=== PATIENT | female | born 1945 | race Two or more races ===

== ENCOUNTER 2020-03-20 12:18 | Outpatient (REF) | payer MEDICARE, SELFPAY ==
--- NOTE | 2020-03-20 12:27 | XR_ITS ---
EXAMINATION: XR FOOT, LEFT CLINICAL INFORMATION: Cellulitis of left lower leg COMPARISON: None TECHNIQUE: AP, lateral, and oblique views of the left foot. FINDINGS: No fracture or dislocation. Alignment is anatomic. Joint spaces are maintained. Prominent Achilles heel spur. Small plantar heel spur. No osseous erosions. The soft tissues appear unremarkable. XR/XR foot LT min 3V IMPRESSION: No acute osseous abnormality. Heel spurs. No osseous erosions.
== END 2020-03-20 12:19 | disposition home or self-care (01) ==
LOC: HO.XRAY 12:18
PROVIDERS: PCP Internal Medicine Geriatric Medicine; Visit Provider General Practice
DX: L03.116 Cellulitis of left lower limb (principal)
CPT/HCPCS: 73630

== ENCOUNTER 2021-09-24 12:42 | Outpatient (REF) | payer OTHER, SELFPAY ==
--- NOTE | ~2021-09-24 | XR_ITS ---
EXAMINATION: XR CHEST CLINICAL INFORMATION: Cough COMPARISON: Portable AP chest radiograph 11/19/2016 TECHNIQUE: 2 views of the chest were obtained. FINDINGS: Patient is rotated to the right. The lungs are clear. There is no lobar or segmental airspace consolidation or effusion. No focal groundglass opacity. The costophrenic sulci are clear. The heart is within normal size. Vascularity normal. No acute bony abnormality. XR/XR chest 2V IMPRESSION: Unremarkable examination.
== END 2021-09-24 12:43 | disposition home or self-care (01) ==
LOC: HO.XRAY 12:42
PROVIDERS: Absent Provider General Practice; PCP General Practice; Visit Provider Emergency Medicine
DX: R05.9 Cough, unspecified (principal)
CPT/HCPCS: 71046

== ENCOUNTER 2022-12-15 13:53 | Outpatient (REF) | payer OTHER, SELFPAY ==
[2022-12-15 16:18] LABS: Appearance Urine Cloudy; Color Urine Yellow; Glucose Urine UA Negative (Negative); Leukocyte Esterase Urine Negative (Negative); Nitrite Urine Negative (Negative); UMIC TRIGGER UACC YES; Urine Blood Trace (Negative); Urine Ketones Negative (Negative); Urine Protein 100 (2+) mg/dL (Neg-Trace)
[2022-12-15 16:31] LABS: Bacteria Urine None Seen (None Seen); Squamous Epithelial Cell Urine 0-2 /HPF (0-2); WBC Urine 0-5 /HPF (0-5)
== END 2022-12-15 13:54 | disposition home or self-care (01) ==
LOC: HO.HHCLNP 13:53
PROVIDERS: Visit Provider Registered Nurse
DX: R41.0 Disorientation, unspecified (principal)
CPT/HCPCS: 81001

== ENCOUNTER 2022-12-25 10:38 | Outpatient (REF) | payer OTHER, SELFPAY ==
[2022-12-25 13:03] LABS: Anion Gap 9 (12-20); Blood Urea Nitrogen 16 mg/dL (9-16); Calcium 9.4 mg/dL (8.4-10.2); Carbon Dioxide 28 mmol/L (22-29); Chloride 110 mmol/L (96-108); Estimated Glomerular Filt Rate > 60; Glucose Random 89 mg/dL (60-115); Potassium 4.1 mmol/L (3.3-5.1); Sodium 143 mmol/L (135-145)
== END 2022-12-25 10:39 | disposition home or self-care (01) ==
LOC: HO.HHCL 10:38
PROVIDERS: Visit Provider Registered Nurse
DX: R80.9 Proteinuria, unspecified (principal)
CPT/HCPCS: 36415; 80048

== ENCOUNTER 2023-01-09 13:29 | Outpatient (REF) | payer OTHER, SELFPAY ==
[2023-01-09 16:11] LABS: Appearance Urine Clear; Color Urine Yellow; Glucose Urine UA Negative (Negative); Leukocyte Esterase Urine Negative (Negative); Nitrite Urine Negative (Negative); Specific Gravity - Urine 1.015 (1.005-1.025); UMIC TRIGGER UACC YES; Urine Blood Trace (Negative); Urine Ketones Negative (Negative); Urine Protein 100 (2+) mg/dL (Neg-Trace)
[2023-01-09 16:16] LABS: Bacteria Urine None Seen (None Seen); Squamous Epithelial Cell Urine 0-2 /HPF (0-2); WBC Urine 0-5 /HPF (0-5)
== END 2023-01-09 13:30 | disposition home or self-care (01) ==
LOC: HO.HHCL 13:29
PROVIDERS: Visit Provider Registered Nurse
DX: R31.21 Asymptomatic microscopic hematuria (principal)
CPT/HCPCS: 81001

== ENCOUNTER 2023-03-12 13:58 | Outpatient (REF) | payer OTHER, SELFPAY ==
[2023-03-12 17:05] LABS: Urine Cytology See Pathology rpt
== END 2023-03-12 13:59 | disposition home or self-care (01) ==
LOC: HO.LAB 13:58
PROVIDERS: PCP General Practice; Visit Provider Urology
DX: R31.9 Hematuria, unspecified (principal); Z87.440 Personal history of urinary (tract) infections
CPT/HCPCS: 81003; 88112; 99202

== ENCOUNTER 2023-03-12 13:58 | Outpatient (AMB) | payer OTHER, SELFPAY ==
--- NOTE | 2023-03-12 14:05 | A.OFFVIS_ITS ---
Intake Intake Visit Reasons: hematuria, unspecified Intake Note: NEW Patient presents today to established treatment for HEMATURIA: Meds- None Allergies to Antibiotic- No Known Allergies Blood Thinner- Aspirin Patient Symptoms: None Activated Sludge Attendant Required: No Accompanied by: Grand Child Allergies No Known Allergies Allergy (Unverified 01/19/20 17:13) HPI HPI Comments History of Present Illness Details Kenyatta is a 78-year-old male who presents today to the office to establish as a new patient for an evaluation of hematuria. 03/12/2023-- Kenyatta is here for evaluation for hematuria. Past Medical history Recurrent UTI's, Diabetes, Htn, The patient complains of daytime urinary frequency every 2-3 hours, I have discussed reasons for blood in the urine may include but are not limited to kidney stones, cancer in the urinary tract, kidney stone disease or inflammatory conditions of the urinary tract. I have discussed workup to include evaluation of the upper tracts and consideration for cystoscopy evaluation. Plan: urine for cytology. renal US FU office cysto PFSH Medical History Hx of backache History of depressive symptoms Hx of gastroesophageal reflux (GERD) Hx of urinary tract infection Hx of delirium History of dementia Hx of diabetes mellitus Hx of essential hypertension Surgical History No pertinent past surgical history Family History Father No problems noted. Mother No problems noted. Social History Alcohol intake: current Alcohol intake frequency: does not drink Patient Tobacco Use Status: Never used Tobacco Review of Systems Const All systems reviewed & are unremarkable except as noted in HPI and below Reports no additional complaints Eyes Reports no additional complaints ENT Reports no additional complaints Card Denies dyspnea Resp Denies cough and Denies dyspnea GI Reports no additional complaints Reports no additional complaints Musc Reports no additional complaints Skin/Breast Denies rash and Denies unusual bruising Neuro Reports no additional complaints Psych Reports no additional complaints Endo Reports no additional complaints Jovi/Lymph Reports no additional complaints Aller/Immun Reports no additional complaints Physical Exam Const General: cooperative, healthy appearing and no acute distress Orientation/consciousness: patient oriented x3 HEENT Head: Yes normal to inspection, Yes normocephalic and Yes atraumatic Eyes Conjunctivae: conjunctivae normal Neck Neck: Yes normal visual inspection and Yes trachea midline Chest Chest palpation & inspection: normal inspection of the chest Resp Effort & Inspection: normal respiratory effort Cardio Rate: regular rate GI Inspection: Yes normal to inspection Palpation (GI): Soft to palpation Skin General skin exam: no rashes or lesions noted Neuro General: patient oriented x3 Extrem General: No edema Psych Appearance: grossly normal Results AMB Urinalysis, Automated UA Leukoctes 0 Tesha/uL Last Edit by JOSE MANUEL Zamora on 03/12/23 14:37 UA Nitrite Negative Last Edit by JOSE MANUEL Zamora on 03/12/23 14:37 UA Urobilinogen 0.2 mg/dL Last Edit by JOSE MANUEL Zamora on 03/12/23 14:3 7 UA Protein 30 mg/dL Last Edit by JOSE MANUEL Zamora on 03/12/23 14:37 1+ Magdiel Cerda 03/12/23 14:37 UA pH 6.0 Last Edit by JOSE MANUEL Zamora on 03/12/23 14:37 UA Blood 25 [place]reed[place]/uL Last Edit by JOSE MANUEL Zamora on 03/12/23 14:37 1+ Magdiel Cerda 03/12/23 14:37 UA Specific [place] 1.015 Last Edit by JOSE MANUEL Zamora on 03/12/23 14: 37 UA Ketone Negative Last Edit by JOSE MANUEL Zamora on 03/12/23 14:37 UA Bilirubin 0 mg/dL Last Edit by JOSE MANUEL Zamora on 03/12/23 14:37 UA Glucose 0 mg/dL Last Edit by JOSE MANUEL Zamora on 03/12/23 14:37 Results Reviewed Results Reviewed: Laboratory Last Values Urine pH (Auto) 6.0 03/12/23 14:09 Specific [place] (Auto) 1.015 03/12/23 14:09 Urine Protein (Auto) 30 mg/dL 03/12/23 14:09 Glucose (UA)(Auto) 0 mg/dL 03/12/23 14:09 Urine Ketones (Auto) Negative 03/12/23 14:09 Urine Blood (Auto) 25 [place]reed[place]/uL 03/12/23 14:09 Urine Nitrite (Auto) Negative 03/12/23 14:09 Urine Bilirubin (Auto) 0 mg/dL 03/12/23 14:09 Urine Urobilinogen (Auto) 0.2 mg/dL 03/12/23 14:09 Leukocyte Esterase (Auto) 0 Tesha/uL 03/12/23 14:09 Assessment & Plan Assessment & Plan (1) Recurrent UTI: Code(s): N39.0 - Urinary tract infection, site not specified (2) Hematuria: Code(s): R31.9 - Hematuria, unspecified Plan urine for cytology. renal US FU office cysto Orders: Orders Urine Cytology 03/12/23 Z87.448 - Personal history of other diseases of urinary system AMB Urinalysis Automated 03/12/23 Z13.9 - Encounter for screening, unspecified Patient Instructions: The patient had an opportunity to ask questions regarding treatment plan. All questions were answered. Imaging, Laboratory studies and physical exam results were discussed and reviewed in detail. No major barriers to understanding were identified. The patient expressed understanding and agreement with the above treatment plan. The patient is aware they should contact our office by phone for worsening of their current condition or the appearance of new symptoms. Compliance is encouraged with any medications and followup testing that is ordered. It is a privilege to be allowed the opportunity to participate in the urologic care of your patient. If you have any questions or concerns regarding treatment for the above conditions please do not hesitate to contact me. The office telephone contact is [phone]. This note is constructed in part using voice recognition software. While every effort has been made to ensure accuracy distribution specialist errors may have been included. Yours sincerely, Jamie Eduardo MD Coding Level of Care Code New Pt Level 4 (76656) Diagnoses Recurrent UTI N39.0 Hematuria R31.9
== END 2023-03-12 15:00 | disposition home or self-care (01) ==
PROVIDERS: PCP General Practice; Visit Provider Urology
DX: N39.0 Urinary tract infection, site not specified (principal); R31.9 Hematuria, unspecified
CPT/HCPCS: 99204

== ENCOUNTER 2023-05-22 12:23 | Outpatient (REF) | payer OTHER, SELFPAY ==
--- NOTE | ~2023-05-22 | US_ITS ---
EXAMINATION: US RETROPERITONEAL LIMITED (RENAL ONLY) CLINICAL INFORMATION: Hematuria, unspecified. COMPARISON: Ultrasound abdomen limited 04/04/2016. CT abdomen and pelvis 06/28/2014. TECHNIQUE: Real-time imaging of the kidneys. FINDINGS: RIGHT KIDNEY: 10.4 x 4.7 x 4.9 cm (SAG x AP x TRV). The kidney is normal in size, contour, and echogenicity. Renal cortical thickness is normal. No calculi or focal parenchymal lesions. No hydronephrosis. LEFT KIDNEY: 10.2 x 4.7 x 4.5 cm (SAG x AP x TRV). The kidney is normal in size, contour, and echogenicity. Renal cortical thickness is normal. No calculi or focal parenchymal lesions. No hydronephrosis. US/US renal BI IMPRESSION: Unremarkable renal ultrasound.
== END 2023-05-22 12:24 | disposition home or self-care (01) ==
LOC: HO.US 12:23
PROVIDERS: PCP General Practice; Visit Provider Urology
DX: R31.9 Hematuria, unspecified (principal); N39.0 Urinary tract infection, site not specified
CPT/HCPCS: 76775

== ENCOUNTER 2023-10-09 10:08 | Outpatient (REF) | payer OTHER, SELFPAY ==
[2023-10-09 11:37] LABS: Alanine Aminotransferase 13 U/L (0-31); Albumin Level 4.2 g/dL (3.5-5.0); Alkaline Phosphatase 90 U/L (39-117); Anion Gap 12 (12-20); Aspartate Amino Transferase 20 U/L (5-31); Bilirubin Total 0.4 mg/dL (0.0-1.0); Blood Urea Nitrogen 14 mg/dL (9-16); Calcium 10.4 mg/dL (8.4-10.2); Carbon Dioxide 29 mmol/L (22-29); Chloride 106 mmol/L (96-108); Cholesterol 116 mg/dL (<200); Estimated Glomerular Filt Rate 58; Glucose Random 235 mg/dL (60-115); HDL Cholesterol 55 mg/dL (>40); LDL Cholesterol Calculated 49 mg/dL (<100); Potassium 4.5 mmol/L (3.3-5.1); Sodium 142 mmol/L (135-145); Total Protein 7.3 g/dL (6.5-8.0); Triglycerides 64 mg/dL (<150)
[2023-10-09 11:55] LABS: TSH reflex Free T4 1.36 uIU/mL (0.32-4.0)
== END 2023-10-09 10:09 | disposition home or self-care (01) ==
LOC: HO.HHCL 10:08
PROVIDERS: Visit Provider General Practice
DX: E11.65 Type 2 diabetes mellitus with hyperglycemia (principal); F03.B3 Unspecified dementia, moderate, with mood disturbance; I10 Essential (primary) hypertension; Z79.4 Long term (current) use of insulin
CPT/HCPCS: 36415; 80053; 80061; 84443

== ENCOUNTER 2023-12-18 17:38 | Emergency (ER) | payer OTHER, SELFPAY ==
--- NOTE | ~2023-12-18 | XR_ITS ---
EXAMINATION: XR ABDOMEN COMPLETE CLINICAL INDICATION: Constipation. COMPARISON: CT abdomen/pelvis dated 06/28/2014. TECHNIQUE: 2 views of the abdomen. FINDINGS: Severe stool burden throughout the colon extending to the rectum. Nonobstructive bowel gas pattern. No intra-abdominal free air. No abnormal soft tissue calcification. No acute osseous abnormality. XR/XR abdomen min 2V IMPRESSION: Severe stool burden throughout the colon extending to the rectum.
--- NOTE | 2023-12-18 18:41 | ED_ITS ---
HPI - Female Genitourinary General Chief complaint: Urogenital-Female Stated complaint: ?UTI Time Seen by Provider: 12/18/23 21:37 History of Present Illness ED Provider: Sal LINDER Narrative: The patient is a 78-year-old female who has a history of dementia. She is quite significantly demented. Her granddaughter brought her to the emergency room today because the patient has seemed to have increasing problems with urinary incontinence over the last 2 or 3 days. The granddaughter was concerned about the possibility of a urinary tract infection. There has been no associated fever, sweats, chills. No nausea or vomiting. No apparent back pain. The granddaughter is also concerned that the patient may not have had a bowel movement recently. The patient does not normally have any problems with constipation. Otherwise the patient has behavior has been at baseline. She has remained pleasantly demented. She has been able to walk with her cane. The patient is significantly demented and not really able to contribute any history. Related Data Home Medications ?Medication ?Instructions ?Recorded ?Confirmed aspirin 81 mg tablet,delayed 81 mg PO DAILY 03/12/23 release blood sugar diagnostic (FreeStyle #10 ea 03/12/23 Lite Strips) cholecalciferol (vitamin D3) 50 50 mcg PO DAILY 03/12/23 mcg (2,000 unit) capsule (Vitamin D3) insulin aspar prot-insulin aspart subcut 03/12/23 100 unit/mL (70-30) subcutaneous pen (Novolog Mix 70-30FlexPen U-100) lancets 33 gauge (Easy Touch Twist #100 ea 03/12/23 Lancets) lisinopril 5 mg tablet 5 mg PO DAILY 03/12/23 metformin 500 mg tablet 500 mg PO BID 03/12/23 pen needle, diabetic 32 gauge x #1,200 ea 03/12/23 (Pentips) quetiapine 100 mg tablet mg PO 03/12/23 quetiapine 25 mg tablet 25 mg PO BEDTIME 03/12/23 rosuvastatin 20 mg tablet 20 mg PO BEDTIME 03/12/23 trazodone 50 mg tablet 50 mg PO BEDTIME 03/12/23 Previous Rx's ?Medication ?Instructions ?Recorded nitrofurantoin 100 mg PO BID #10 caps 12/18/23 monohydrate/macrocrystals 100 mg capsule (Macrobid) bisacodyl 10 mg rectal suppository 10 mg DE DAILY PRN constipation 12/19/23 (Dulcolax (bisacodyl)) #12 ea polyethylene glycol 3350 17 17 g PO DAILY #238 grams 12/19/23 gram/dose oral powder (Miralax) Allergies Allergy/AdvReac Type Severity Reaction Status Date / Time No Known Allergies Allergy Verified 12/18/23 18:45 Review of Systems 2 Review of Systems: Yes Unobtainable due to mental condition PMFSH Past Medical History Medical History Hx of backache History of depressive symptoms Hx of gastroesophageal reflux (GERD) Hx of urinary tract infection Hx of delirium History of dementia Hx of diabetes mellitus Hx of essential hypertension Surgical History No pertinent past surgical history Family History Family History Father No problems noted. Mother No problems noted. Social History Social History Alcohol intake: never Patient Tobacco Use Status: Never used Tobacco Smoked in Last 30 Days: No Use of substances other than those prescribed or required for medical reasons: No Advance Directives: No Advance Directives Information Provided: No Physical Exam 2 Vital Signs: Vital Signs: Last Vital Signs Temp 98.0 F 12/19/23 01:19 Pulse 72 12/19/23 01:19 Resp 16 12/19/23 01:19 BP 116/57 L 12/19/23 01:19 Pulse Ox 98 12/19/23 01:19 O2 Del Method Room Air 12/19/23 01:19 BMI result Body Mass Index 28.4 Const: Other: The patient is awake and alert. She is pleasantly demented. She looks well. HEENT: Other: Face is symmetrical, mucous membranes moist. Eyes: Other: Pupils are round equal, conjunctivae are clear Neck: Neck: Yes no JVD Resp: Effort & Inspection: normal respiratory effort Cardio: Other: 2/6 systolic murmur Rate: regular rate Rhythm: regular rhythm Heart sounds: S1 normal heart sound present and S2 normal heart sound present GI: Other: Abdomen is soft and nontender. Rectal exam reveals normal rectal tone. There was a lot of very firm stool in the rectal vault. : General: Yes no CVA tenderness Back/Spine/Pelvis: Back: no CVA tenderness Skin: Other: Skin is dry and unremarkable Neuro: Other: The patient is awake and alert. She is pleasantly demented. She does not seem in any distress. She spoke a great deal but what she said did not seem to make much sense. Cranial nerves are grossly intact. She moves her extremities symmetrically. No focal deficit. One to 2+ reflexes at the knees and ankles. Toes go down bilaterally. She seems to have intact strength and function of both legs. Rectal tone is normal. She seems to have normal perineal sensation. Extrem: Other: No pitting edema Course Course Course Narrative: This is a Rapid Medical Exam performed in triage by Kourtney Mueller PA-C. Full HPI, ROS and PE to be performed by primary ED provider. 78 year-old F w/ PMHx HTN, DM, demantia, GERD presenting to the ED c/o suspected UTI w/dysuria & accidents /urinary incontinence x yesterday & suspected constipation. Hx obtained from granddaughter due to patients baseline dementia. Last BM suspected to be 2 days ago but unknown. Denies change in mental status, states she is at her baseline PE: nontoxic appearing, pleasantly confused Plan: labs, UA, KUB Medications Administered Discontinued Medications Generic Name Dose Route Start Last Admin Trade Name José Miguelq PRN Reason Stop Dose Admin Bisacodyl 10 mg 12/18/23 22:07 12/18/23 23:02 Bisacodyl 10 Mg Supp.Rect DE 12/18/23 22:08 10 mg ONCE ONE Administration Nitrofurantoin Macrocrystals 100 mg 12/18/23 21:50 12/18/23 22:02 Nitrofurantoin Monohyd/M-Cryst 100 Mg Capsule PO 12/18/23 21:51 100 mg ONCE ONE Administration Polyethylene Glycol 17 gm 12/18/23 22:07 12/18/23 23:02 Polyethylene Glycol 3350 17 Gm Powd.Pack PO 12/18/23 22:08 17 gm ONCE ONE Administration Sodium Biphosphate/Sodium Phosphate 133 ml 12/18/23 23:00 12/18/23 23:30 Sodium Phosphate,Alexander-Dibasic 133 Ml Enema DE 12/18/23 23:01 133 ml ONCE ONE Administration Medical Decision Making Medical Decision Making [facility] Narrative: The patient is a 78-year-old woman with a history of significant dementia who was brought to the hospital by her dental laboratory manager, her granddaughter, who was concerned that the patient seems to be having increased urinary frequency and incontinence. The granddaughter is also concerned the patient might be constipated. A KUB was done that shows a great deal of stool in the colon including a fair amount of stool in the rectum. Urinalysis was done that is consistent with a UTI. A bladder scan was done that showed a bladder volume of about 600 mL. Although the patient has some degree of urinary retention and is significantly constipated I am not finding anything on the rest of her exam that suggests something like cauda equina syndrome. She does not seem in any discomfort. She seems to have intact neurological function of her legs. Her rectal tone is good. She does not seem to have saddle anesthesia. My impression is that patient is constipated and this may have caused some degree of urinary retention. The patient's bladder was drained with a straight catheterization. I administered a Fleet enema. Patient did not really give any response to the Fleet enema. She was then given a Dulcolax suppository. She was also given a dose of oral MiraLax. I suspect that once the patient starts moving her bowels her urine flow will improve. The patient will therefore be discharged with a prescription for MiraLax to be given daily at home. Also a prescription for Dulcolax to be given a suppository daily. Additionally the patient will be started on Macrobid for UTI. Lab Data 12/18/23 18:53 12/18/23 18:52 Labs: Lab Results 12/18/23 12/18/23 12/18/23 Range/Units 18:52 18:53 19:52 WBC 8.1 (4.8-10.8) X10*3/uL RBC 4.43 (4.20-5.50) X10*6/uL Hgb 11.4 L (12.0-16.0) g/dl Hct 35.7 L (37.0-47.0) % MCV 80.6 (80.0-98.0) fL MCH 25.7 L (27.0-33.0) pg MCHC 31.9 (31.0-35.0) g/dl RDW 15.2 (11.0-16.0) % Plt Count 229 (160-400) X10*3/uL MPV 10.9 (9.4-12.3) fL Immature Gran % (Auto) 0.4 (0.0-0.4) % Neut % (Auto) 71.4 (45-73) % Lymph % (Auto) 19.5 L (20-40) % Alexander % (Auto) 7.7 (2-11) % Eos % (Auto) 0.6 (0-4) % Baso % (Auto) 0.4 (0-2) % Lymph # (Auto) 1.6 (1.2-4.9) X10*3/uL Alexander # (Auto) 0.6 (0.1-1.2) X10*3/uL Eos # (Auto) 0.1 (0.0-0.4) X10*3/uL Baso # (Auto) 0.0 (0.0-0.2) X10*3/uL Abs Immat Gran (auto) 0.03 (0.00-0.03) X10*3/uL Absolute Neuts (auto) 5.8 (2.0-8.3) x10*3/uL Absolute Nucleated RBC 0.000 (0.0-0.012) X10*3/uL Nucleated RBC % (auto) 0.0 (0.0-0.2) /100WBC Sodium 144 (135-145) mmol/L Potassium 4.3 (3.3-5.1) mmol/L Chloride 109 H (96-108) mmol/L Carbon Dioxide 24 (22-29) mmol/L Anion Gap 15 (12-20) BUN 17 H (9-16) mg/dL Creatinine 0.77 (0.5-1.4) mg/dL Estim Creat Clear Calc 52.3 Estimated GFR > 60 POC Glucose 59 L* (60-115) mg/dL Random Glucose 59 L* (60-115) mg/dL Calcium 10.3 H (8.4-10.2) mg/dL Magnesium 2.2 (1.6-2.6) mg/dL Total Bilirubin 0.4 (0.0-1.0) mg/dL Direct Bilirubin 0.2 (0.0-0.5) mg/dL AST 21 (5-31) U/L ALT 14 (0-31) U/L Alkaline Phosphatase 88 (39-117) U/L Total Protein 7.2 (6.5-8.0) g/dL Albumin 4.3 (3.5-5.0) g/dL Urine Color Urine Appearance Urine pH (5.0-9.0) Ur Specific [place] (1.005-1.025) Urine Protein (Neg-Trace) mg/dL Urine Glucose (UA) (Negative) mg/dL Urine Ketones (Negative) mg/dL Urine Blood (Negative) Urine Nitrite (Negative) Ur Leukocyte Esterase (Negative) Urine RBC (0-2) /HPF Urine WBC (0-5) /HPF Ur Squamous Epith Cells (0-2) /HPF Urine Bacteria (None Seen) Hyaline Casts (0-2) /LPF 12/18/23 12/18/23 Range/Units 20:27 21:03 WBC (4.8-10.8) X10*3/uL RBC (4.20-5.50) X10*6/uL Hgb (12.0-16.0) g/dl Hct (37.0-47.0) % MCV (80.0-98.0) fL MCH (27.0-33.0) pg MCHC (31.0-35.0) g/dl RDW (11.0-16.0) % Plt Count (160-400) X10*3/uL MPV (9.4-12.3) fL Immature Gran % (Auto) (0.0-0.4) % Neut % (Auto) (45-73) % Lymph % (Auto) (20-40) % Alexander % (Auto) (2-11) % Eos % (Auto) (0-4) % Baso % (Auto) (0-2) % Lymph # (Auto) (1.2-4.9) X10*3/uL Alexander # (Auto) (0.1-1.2) X10*3/uL Eos # (Auto) (0.0-0.4) X10*3/uL Baso # (Auto) (0.0-0.2) X10*3/uL Abs Immat Gran (auto) (0.00-0.03) X10*3/uL Absolute Neuts (auto) (2.0-8.3) x10*3/uL Absolute Nucleated RBC (0.0-0.012) X10*3/uL Nucleated RBC % (auto) (0.0-0.2) /100WBC Sodium (135-145) mmol/L Potassium (3.3-5.1) mmol/L Chloride (96-108) mmol/L Carbon Dioxide (22-29) mmol/L Anion Gap (12-20) BUN (9-16) mg/dL Creatinine (0.5-1.4) mg/dL Estim Creat Clear Calc Estimated GFR POC Glucose 110 (60-115) mg/dL Random Glucose (60-115) mg/dL Calcium (8.4-10.2) mg/dL Magnesium (1.6-2.6) mg/dL Total Bilirubin (0.0-1.0) mg/dL Direct Bilirubin (0.0-0.5) mg/dL AST (5-31) U/L ALT (0-31) U/L Alkaline Phosphatase (39-117) U/L Total Protein (6.5-8.0) g/dL Albumin (3.5-5.0) g/dL Urine Color Yellow Urine Appearance Cloudy Urine pH 7.0 (5.0-9.0) Ur Specific [place] 1.020 (1.005-1.025) Urine Protein 100 (2+) H (Neg-Trace) mg/dL Urine Glucose (UA) Negative (Negative) mg/dL Urine Ketones Negative (Negative) mg/dL Urine Blood Trace H (Negative) Urine Nitrite Negative (Negative) Ur Leukocyte Esterase Moderate (2+) H (Negative) Urine RBC 6-10 H (0-2) /HPF Urine WBC 21-50 H (0-5) /HPF Ur Squamous Epith Cells 0-2 (0-2) /HPF Urine Bacteria None Seen (None Seen) Hyaline Casts 3-5 (0-2) /LPF Discharge Plan Discharge Clinical Impression: Urinary tract infection, Constipation Patient Disposition: Home, Self-Care Additional Instructions: The urine test today is consistent with a urinary tract infection. She has been started on an antibiotic, Macrobid (also called nitrofurantoin). Please have her take this antibiotic 2 times a day for the next 5 days. This should be given approximately every 12 hours. Please complete the entire course of antibiotic. For her constipation I have sent a prescription for polyethylene glycol (commonly called MiraLax) to the pharmacy. Please give her a daily dose of this powder. Dissolve 17 g (1 capfull) in 8 oz of of water. Additionally I have sent a prescription for Dulcolax suppositories. Please administer a suppository daily until it seems she is having regular bowel movements. Please contact your regular doctor's office on Thursday for a follow up appointment this coming week. Return to the emergency room if worse. Prescriptions: New nitrofurantoin monohyd/m-cryst [Macrobid] 100 mg capsule 100 mg PO BID Qty: 10 0RF Rx Instructions: must administer with a meal/food polyethylene glycol 3350 [Miralax] 17 gram/dose powder 17 g PO DAILY Qty: 238 0RF bisacodyl [Dulcolax (bisacodyl)] 10 mg suppository 10 mg DE DAILY PRN (Reason: constipation) Qty: 12 0RF No Action insulin asp prt-insulin aspart [Novolog Mix 70-30FlexPen U-100] 100 unit/mL (70-30) insulin pen subcut quetiapine 100 mg tablet PO trazodone 50 mg tablet 50 mg PO BEDTIME metformin 500 mg tablet 500 mg PO BID quetiapine 25 mg tablet 25 mg PO BEDTIME (DME) pen needle, diabetic [Pentips] 32 gauge x needle See Rx Instructions .ROUTE .MEDSUPPLY Qty: 1200 Rx Instructions: As directed (DME) FreeStyle Lite Strips Strip See Rx Instructions .ROUTE .MEDSUPPLY Qty: 10 Rx Instructions: As directed rosuvastatin 20 mg tablet 20 mg PO BEDTIME lisinopril 5 mg tablet 5 mg PO DAILY aspirin 81 mg tablet,delayed release (DR/EC) 81 mg PO DAILY (DME) lancets [Easy Touch Twist Lancets] 33 gauge misc See Rx Instructions .ROUTE .MEDSUPPLY Qty: 100 Rx Instructions: As directed cholecalciferol (vitamin D3) [Vitamin D3] 50 mcg (2,000 unit) capsule 50 mcg PO DAILY Referrals: Hue Maxwell MD [Primary Care Provider] - (UTI) Interventions: ED Discharge Assessment Last Done: 12/19/23 01:19 Discharge Date/Time: 12/19/23 01:19 Print Language: Welsh
[2023-12-18 18:42] VITALS: BP 114/67; PULSE 80; RESP 16; TEMP 36.4; O2SAT 100; BMI 28.4
[2023-12-18 18:56] LABS: MANUAL DIFF FLAG NO
[2023-12-18 18:59] LABS: Basophils Percent Auto 0.4 % (0-2); Eosinophils Absolute Auto 0.1 X10*3/uL (0.0-0.4); Eosinophils Percent Auto 0.6 % (0-4); Hematocrit 35.7 % (37.0-47.0); Hemoglobin 11.4 g/dl (12.0-16.0); Imm Gran Abs Auto 0.03 X10*3/uL (0.00-0.03); Imm Gran Pct Auto 0.4 % (0.0-0.4); Lymphocytes Absolute Auto 1.6 X10*3/uL (1.2-4.9); Lymphocytes Percent Auto 19.5 % (20-40); Mean Corpuscular HGB Conc 31.9 g/dl (31.0-35.0); Mean Corpuscular Hemoglobin 25.7 pg (27.0-33.0); Mean Corpuscular Volume 80.6 fL (80.0-98.0); Mean Platelet Volume 10.9 fL (9.4-12.3); Monocytes Absolute Auto 0.6 X10*3/uL (0.1-1.2); Monocytes Percent Auto 7.7 % (2-11); Neutrophils Absolute Auto 5.8 x10*3/uL (2.0-8.3); Neutrophils Percent Auto 71.4 % (45-73); Platelet Count 229 X10*3/uL (160-400); Red Blood Count 4.43 X10*6/uL (4.20-5.50); Red Cell Distribution Width 15.2 % (11.0-16.0); White Blood Count 8.1 X10*3/uL (4.8-10.8)
[2023-12-18 19:31] LABS: Alanine Aminotransferase 14 U/L (0-31); Albumin Level 4.3 g/dL (3.5-5.0); Alkaline Phosphatase 88 U/L (39-117); Anion Gap 15 (12-20); Aspartate Amino Transferase 21 U/L (5-31); Bilirubin Direct 0.2 mg/dL (0.0-0.5); Bilirubin Total 0.4 mg/dL (0.0-1.0); Blood Urea Nitrogen 17 mg/dL (9-16); Calcium 10.3 mg/dL (8.4-10.2); Carbon Dioxide 24 mmol/L (22-29); Chloride 109 mmol/L (96-108); Creatinine Clr Calc Pharmacy 52.3; Estimated Glomerular Filt Rate > 60; Glucose Random 59 mg/dL (60-115); Magnesium 2.2 mg/dL (1.6-2.6); Potassium 4.3 mmol/L (3.3-5.1); Sodium 144 mmol/L (135-145); Total Protein 7.2 g/dL (6.5-8.0)
[2023-12-18 19:56] LABS: Glucose, Whole Blood 59 mg/dL (60-115)
--- NOTE | 2023-12-18 19:59 | PC.NURSE ---
Assumed care of this Pt at this time. Pt POC repeat 59, sandwich and juice given.
--- NOTE | 2023-12-18 20:31 | PC.NURSE ---
Pt ambulated to with cane and assist of granddaughter. Urine sample collected and sent to lab.
[2023-12-18 20:33] LABS: Appearance Urine Cloudy; Color Urine Yellow; Glucose Urine UA Negative (Negative); Leukocyte Esterase Urine Moderate (2+) (Negative); Nitrite Urine Negative (Negative); UMIC TRIGGER UACC YES; Urine Blood Trace (Negative); Urine Ketones Negative (Negative); Urine Protein 100 (2+) mg/dL (Neg-Trace)
[2023-12-18 20:46] LABS: Bacteria Urine None Seen (None Seen); Squamous Epithelial Cell Urine 0-2 /HPF (0-2); UACC Culture Trigger YES; WBC Urine 21-50 /HPF (0-5)
[2023-12-18 21:06] LABS: Glucose, Whole Blood 110 mg/dL (60-115)
[2023-12-18 21:53] VITALS: BP 121/62; PULSE 73; RESP 17; O2SAT 100
[2023-12-18] MEDS: Nitrofurantoin Monohyd/M-Cryst 100 MG CAPSULE PO (22:02)
[2023-12-18] MEDS: polyethylene glycoL 3350 17 GM POWD.PACK PO (23:02)
[2023-12-18] MEDS: bisacodyL 10 MG SUPP.RECT PR (23:02)
[2023-12-18] MEDS: Sodium Phosphate,Mono-Dibasic 133 ML ENEMA PR (23:30)
--- NOTE | 2023-12-18 23:43 | PC.NURSE ---
Pt straight cath for urine, Pt tolerated well. Output 700 CC of clear yellow urine.
[2023-12-19 00:57] VITALS: BP 116/57; PULSE 72; RESP 16; O2SAT 98
[2023-12-19 01:19] VITALS: BP 116/57; PULSE 72; RESP 16; TEMP 36.7; O2SAT 98
== END 2023-12-19 01:19 | disposition home or self-care (01) ==
PROVIDERS: Physician Assistant; Emergency Provider Emergency Medicine; PCP General Practice
DX: N39.0 Urinary tract infection, site not specified (principal); K59.00 Constipation, unspecified; R33.9 Retention of urine, unspecified; F03.90 Unspecified dementia, unspecified severity, without behavioral disturbance, psychotic disturbance, mood disturbance, and anxiety; Z87.440 Personal history of urinary (tract) infections; Z79.82 Long term (current) use of aspirin; Z79.4 Long term (current) use of insulin; Z79.899 Other long term (current) drug therapy
CPT/HCPCS: 36415; 51798; 74019; 80048; 80076; 81001; 82947; 83735; 85025; 87086; 99284

== ENCOUNTER 2024-10-21 14:10 | Outpatient (REF) | payer OTHER, SELFPAY ==
--- NOTE | ~2024-10-21 | XR_ITS ---
EXAMINATION: XR FOOT, RIGHT CLINICAL INFORMATION: Foot pain, soft tissue ulceration , possible gout diagnosis COMPARISON: None available. TECHNIQUE: AP and lateral oblique view lower extremity, right foot FINDINGS: Joint spaces are preserved. No erosions are evident. No osteophytes are present. 2. Foci of ossification are present in the distal Achilles tendon. There are calcaneal spurs at the Achilles and plantar region. XR/XR foot RT min 3V IMPRESSION: No acute abnormalities. Calcaneal spurs. Electronically signed by: Eddie Ma MD 10/21/2024 03:22 PM EDT
--- NOTE | ~2024-10-21 | XR_ITS ---
EXAMINATION: XR FOOT, LEFT CLINICAL INFORMATION: Left foot swelling, possible gout COMPARISON: None available. TECHNIQUE: AP, lateral, and oblique views of the left foot. FINDINGS: Small chronic soft tissue calcification is present medial to the first metatarsal head. Joint spaces are preserved. No erosions are evident. Possible remote avulsion fracture of the fifth metatarsal base with visible bridging bone. There is ossification in the distal Achilles tendon and small calcaneal spurs. XR/XR foot LT min 3V IMPRESSION: No erosions and no acute abnormality. Calcaneal spurs and ossification within the distal Achilles tendon Electronically signed by: Eddie Ma MD 10/21/2024 03:19 PM EDT
[2024-10-21 16:22] LABS: Anion Gap 10 (12-20); Blood Urea Nitrogen 9 mg/dL (9-16); Calcium 8.8 mg/dL (8.4-10.2); Carbon Dioxide 27 mmol/L (22-29); Chloride 110 mmol/L (96-108); Estimated Glomerular Filt Rate > 60; Glucose Random 160 mg/dL (60-115); Potassium 4.1 mmol/L (3.3-5.1); Sodium 143 mmol/L (135-145)
== END 2024-10-21 14:11 | disposition home or self-care (01) ==
LOC: HO.HHCL 14:10
PROVIDERS: PCP General Practice; Visit Provider General Practice
DX: E11.65 Type 2 diabetes mellitus with hyperglycemia (principal); M79.671 Pain in right foot; M79.672 Pain in left foot; Z79.4 Long term (current) use of insulin
CPT/HCPCS: 36415; 73630; 80048

== ENCOUNTER → 2024-10-21 14:22 | Outpatient (BNV) | payer OTHER, SELFPAY | PROVIDERS: PCP General Practice; Visit Provider Radiology Diagnostic Radiology | DX: M77.32 Calcaneal spur, left foot (principal); M77.31 Calcaneal spur, right foot | CPT/HCPCS: 73630 ==

== ENCOUNTER 2024-11-15 14:22 | Outpatient (REF) | payer OTHER, SELFPAY ==
--- NOTE | ~2024-11-15 | US_ITS ---
EXAMINATION: US LOWER EXTREMITY VEINS LIMITED FOLLOW UP LEFT HISTORY: LLE EDEMA COMPARISON: There are no prior studies available for comparison. TECHNIQUE: Duplex and color Doppler sonographic examination of the deep venous system of the left lower extremity was performed. FINDINGS: The common femoral vein is patent demonstrating normal compressibility, spontaneous flow, and augmentation. There is echogenic noncompressible thrombus in the femoral vein, the popliteal vein, and in the posterior tibial and peroneal veins. There are prominent lymph nodes in the left inguinal region. US/US venous duplex LE LT IMPRESSION: Deep venous thrombosis of the left femoral and popliteal veins. A preliminary report was given to the provider's office by the surgical scrub technologist on 11/15/2024 at 3:10 PM. Electronically signed by: Daniel Tran MD 11/15/2024 03:17 PM EDT
--- OUTSIDE RECORDS SUMMARY | 2024-11-15 15:37 | XMS_ITS | Encounter Summary ---
Author Organization [employer] Address [address] [facility] [address] [place] [address] Care Team Providers Care Aeronautical Engineering Professor Name Role Phone Hue Maxwell MD Primary Care Provider [phone] Encounter Details Date Type Department Care Team (Late st Contact Info) Description 05/20/2022 Orders Only [facility] [address] [place] [address] Isabelle Jenkins LPN Social History Tobacco Use Types Packs/Day Years Used Date Smoking Tobacco: Never Assessed Comments Unknown Sex and Gender Information Value Date Recorded Sex Assigned at Female 03/03/2022 10:17 AM EDT Legal Sex Female 10:17 AM EDT Gender Identity Female 03/03/2022 10:17 AM EDT Sexual Orientation Straight 05/07/2022 2: 45 PM EST documented as of this encounter Plan of Treatment Upcoming Encounters Date Type Department Care Team (Late st Contact Info) Description 01/23/2025 2:00 PM EDT Office Visit [facility]INE [address] [place] [address] Hue Maxwell MD [address] [place] [address] documented as of this encounter Visit Diagnoses Not on filedocumented in this encounter Care Teams Aeronautical Engineering Professor Relationship Specialty Start Date End Date Hue Maxwell MD [address] [place] [id number] PCP - General Family Medicine 02/27/20 documented as of this encounter
== END 2024-11-15 14:23 | disposition home or self-care (01) ==
LOC: HO.US 14:22
PROVIDERS: Visit Provider Internal Medicine
DX: R60.0 Localized edema (principal)
CPT/HCPCS: 93971

== ENCOUNTER → 2024-11-15 14:25 | Outpatient (BNV) | payer OTHER, SELFPAY | PROVIDERS: Visit Provider Radiology Diagnostic Radiology | DX: I82.432 Acute embolism and thrombosis of left popliteal vein (principal); I82.412 Acute embolism and thrombosis of left femoral vein | CPT/HCPCS: 93971 ==

== ENCOUNTER 2024-11-15 15:21 | Emergency (ER) | payer OTHER, SELFPAY ==
[2024-11-15 15:33] VITALS: BP 102/47; PULSE 76; RESP 18; TEMP 36.2; O2SAT 98; BMI 23.8
--- NOTE | 2024-11-15 15:44 | ED.GENADULT ---
HPI - General Adult General Chief complaint: General Medical Stated complaint: Coming from ultrasound w/ +DVT Time Seen by Provider: 11/15/24 20:08 Source: patient, family, RN notes reviewed, old records reviewed and division manager Mode of arrival: ambulatory Limitations: language barrier History of Present Illness ED Provider: Rosalinda Logan PA-C HPI narrative: Finnish-speaking only patient with a past medical history significant for GERD, hypertension, dementia, diabetes mellitus on insulin presenting to the emergency department today and setting of positive ultrasound showing a left lower extremity DVT. Patient has had leg swelling of the left lower extremity from her mid calf to her mid upper thigh for the past month. She denies any associated trauma she is without any history of kidney failure or cancer. She does sit a lot but has had no recent surgeries. She denying any respiratory symptoms such as chest pain or shortness of breath. The leg does hurt especially in the calf region. She is denying any bony tenderness. She is able tolerate p.o. fluids and void regularly. Patient does use assistive devices to ambulate at baseline including a cane and walker. She has family administrative hearing officer 24/11 she has never left alone. Patient is mentating at her baseline she is oriented to herself and people only. Related Data Home Medications ?Medication ?Instructions ?Recorded ?Confirmed aspirin 81 mg tablet,delayed 81 mg PO DAILY 03/12/23 release blood sugar diagnostic (FreeStyle #10 ea 03/12/23 Lite Strips) cholecalciferol (vitamin D3) 50 50 mcg PO DAILY 03/12/23 mcg (2,000 unit) capsule (Vitamin D3) insulin aspar prot-insulin aspart subcut 03/12/23 100 unit/mL (70-30) subcutaneous pen (Novolog Mix 70-30FlexPen U-100) lancets 33 gauge (Easy Touch Twist #100 ea 03/12/23 Lancets) lisinopril 5 mg tablet 5 mg PO DAILY 03/12/23 metformin 500 mg tablet 500 mg PO BID 03/12/23 pen needle, diabetic 32 gauge x #1,200 ea 03/12/23 (Pentips Pen Needle) quetiapine 100 mg tablet mg PO 03/12/23 quetiapine 25 mg tablet 25 mg PO BEDTIME 03/12/23 rosuvastatin 20 mg tablet 20 mg PO BEDTIME 03/12/23 trazodone 50 mg tablet 50 mg PO BEDTIME 03/12/23 Previous Rx's ?Medication ?Instructions ?Recorded nitrofurantoin 100 mg PO BID #10 caps 12/18/23 monohydrate/macrocrystals 100 mg capsule (Macrobid) bisacodyl 10 mg rectal suppository 10 mg FL DAILY PRN constipation 12/19/23 (Dulcolax (bisacodyl)) #12 ea polyethylene glycol 3350 17 17 g PO DAILY #238 grams 12/19/23 gram/dose oral powder (Miralax) apixaban 5 mg tablet 10 mg (2 x 5 mg) PO BID VTE 7 days 11/15/24 #28 tabs Allergies Allergy/AdvReac Type Severity Reaction Status Date / Time No Known Allergies Allergy Verified 11/15/24 15:41 Review of Systems Review of Systems: Yes all other systems are reviewed and are negative [facility] Past Medical History Attestation statement: The following information was validated with the patient. Source: old records reviewed, obtained from family and nursing notes reviewed Medical History Hx of backache History of depressive symptoms Hx of gastroesophageal reflux (GERD) Hx of urinary tract infection Hx of delirium History of dementia Hx of diabetes mellitus Hx of essential hypertension Surgical History No pertinent past surgical history Family History Family History Father No problems noted. Mother No problems noted. Social History Social History Alcohol intake: never Patient Tobacco Use Status: Never used Tobacco Smoked in Last 30 Days: No Use of substances other than those prescribed or required for medical reasons: No Advance Directives: No Advance Directives Information Provided: No Do you have a plan to hurt others: No Plan Physical Exam ED Vital Signs: Vital Signs - 24 hr 11/15/24 15:33 11/15/24 18:04 11/15/24 19:33 Temperature 97.2 F 98.3 F Pulse Rate 76 73 68 Respiratory Rate 18 16 18 Blood Pressure 102/47 L 131/107 H 116/62 Pulse Oximetry 98 99 99 Oxygen Delivery Method Room Air Room Air Room Air BMI result Body Mass Index 23.8 General: Appears in no acute distress, appears well nourished body habitus is normal, appears stated age. No septic or ill-appearing. Vitals reviewed normal, PMH/Social and Surgical hx reviewed including allergies and current medications. - Head: Normocephalic, no abnormal lesions noted. Eyes: EOMI. Conjunctiva and sclera clear ENMT: moist oral mucosa, Hearing intact. Uvula is midline no trismus. Neck: trachea midline, no lymphadenopathy. No nuchal rigidity. Cardiovascular: peripheral perfusion normal, S1 and S2 present, no M/R/G. RRR Respiratory: no respiratory distress, lungs clear to auscultation b/l, respirations full and symmetric. No flail chest, chest wall tenderness or crepitus noted. Speaking in full smooth sentences. Abdomen: nondistended, nontender Extremities: Warm and appear well perfused. Moving extremities without difficulty with exception to LLE. TTP of calf with no obvious palpable cords, no erythema, no bony tenderness, compartments soft, left calf slightly firm compared to contralateral, full ROM distal joint, cap refill < 3 secs, distal pulses 2+, sensation intact Psych: Cooperative, calm. Neuro: Alert and orientated. No obvious focal deficits. Const General: cooperative, healthy appearing, no acute distress, alert and awake Nutritional Appearance: obese Orientation/consciousness: oriented to person Limitations: altered mental status, language barrier and physical limitations Cardio Jugular venous distension: no JVD Rate: regular rate Neuro General: oriented to person Course Course Course Narrative: 11/15/24 [id number] KYLEIGH Fink This is a Rapid Medical Examination (RME) performed by Sergio Lopez PA-C in triage. Full HPI, ROS, assessment and treatment plan per primary provider in the Main ED. Hx: 79 yo F here w/ family for abnormal LLE venous duplex results. reports pain/swelling to LLE, had outpatient US done which showed DVT to L femoral and L popliteal vv, sent here for further eval. PE/vitals: LLE/ankle swollen, erythematous, ttp Plan: labs, coags Medications Administered Discontinued Medications Generic Name Dose Route Start Last Admin Trade Name Freq PRN Reason Stop Dose Admin Apixaban 10 mg 11/15/24 20:30 11/15/24 20:52 Apixaban 5 Mg Tablet PO 11/15/24 20:31 10 mg ONCE ONE Administration Medical Decision Making Medical Decision Making [facility] Narrative: 79 y/o F with PMH sig for HTN, dementia, GERD, and depression presents with leg swelling for months coming from ultrasound for VTE of LLE. Upon arrival to ED, she is afebrile and well appearing. Finnish speaking only, her granddaughter and formal in person pants maker was used during H and P and discharge process. DDX includes chronic venous stasis changes, lymphedema, fracture or trauma, MSK pain, and other nonemergent causes of leg swelling. Doubt atypical presentation of CHF or other volume overload states. PE is low on the differential due to normal vital signs without symptoms. Low suspicion for constitutional infection or metabolic derangements. Plan: basic labs ordered in ED along with outpatient U/S of LLE reviewed. U/S of LLE: FINDINGS: The common femoral vein is patent demonstrating normal compressibility, spontaneous flow, and augmentation. There is echogenic noncompressible thrombus in the femoral vein, the popliteal vein, and in the posterior tibial and peroneal veins. There are prominent lymph nodes in the left inguinal region Labs show microcyctic anemia, likely chronic no c/o blood loss; patient does not meet transfusion criteria. In setting of multiple clots in LLE, I consulted with vascular specialist to determine admit with outpatient therapy. Based on location and patient history- he recommended outpatient management with eliquis. First dose given in ED. This plan was discussed with patient and her family who feel safe to go home. 30 day RX order given. Follow up with PCP/heme recommended. ED return precautions discussed. Patient agreed with plan and was d/c to home stable. Differential Diagnosis Differential Diagnoses: The differential diagnosis associated with the presentation includes See MDM Admission/Observation Consideration of admission/observation: Escalation of care including admission/observation considered Consult Healthcare Provider Management of the patient was discussed with: Rubber Stamp Maker (Spoke to vascular specialist Dr. Levi who recommended outpatient therapy with Eliquis) Lab Data [facility] Lab Attestation statement: I reviewed the patient's lab results. Mild anemia noted but no kidney dysfunction or leukocytosis. 11/15/24 15:59 11/15/24 15:59 Labs: Lab Results 11/15/24 Range/Units 15:59 WBC 7.4 (4.8-10.8) X10*3/uL RBC 3.99 L (4.20-5.50) X10*6/uL Hgb 10.3 L (12.0-16.0) g/dl Hct 32.9 L (37.0-47.0) % MCV 82.5 (80.0-98.0) fL MCH 25.8 L (27.0-33.0) pg MCHC 31.3 (31.0-35.0) g/dl RDW 14.2 (11.0-16.0) % Plt Count 267 (160-400) X10*3/uL MPV 10.8 (9.4-12.3) fL Immature Gran % (Auto) 0.3 (0.0-0.4) % Neut % (Auto) 70.8 (45-73) % Lymph % (Auto) 17.8 L (20-40) % [place] % (Auto) 9.7 (2-11) % Eos % (Auto) 0.9 (0-4) % Baso % (Auto) 0.5 (0-2) % Lymph # (Auto) 1.3 (1.2-4.9) X10*3/uL [place] # (Auto) 0.7 (0.1-1.2) X10*3/uL Eos # (Auto) 0.1 (0.0-0.4) X10*3/uL Baso # (Auto) 0.0 (0.0-0.2) X10*3/uL Abs Immat Gran (auto) 0.02 (0.00-0.03) X10*3/uL Absolute Neuts (auto) 5.2 (2.0-8.3) x10*3/uL Absolute Nucleated RBC 0.000 (0.0-0.012) X10*3/uL Nucleated RBC % (auto) 0.0 (0.0-0.2) /100WBC PT 12.4 (10.9-12.4) SEC INR 1.1 (0.9-1.1) APTT 31.1 (26.0-36.8) SEC Sodium 141 (135-145) mmol/L Potassium 3.9 (3.3-5.1) mmol/L Chloride 105 (96-108) mmol/L Carbon Dioxide 30 H (22-29) mmol/L Anion Gap 10 L (12-20) BUN 13 (9-16) mg/dL Creatinine 0.69 (0.5-1.4) mg/dL Estim Creat Clear Calc 51.4 Estimated GFR > 60 Random Glucose 280 H (60-115) mg/dL Calcium 8.8 (8.4-10.2) mg/dL Total Bilirubin 0.4 (0.0-1.0) mg/dL AST 26 (5-31) U/L ALT 11 (0-31) U/L Alkaline Phosphatase 104 (39-117) U/L Total Protein 6.5 (6.5-8.0) g/dL Albumin 3.7 (3.5-5.0) g/dL Independent Interpretation I performed an independent interpretation of an: Ultrasound Interpretation: Clot present of the popliteal vein Radiology Impression Discussion of test interpretation with radiology: I have reviewed the radiologist's reading. Radiologist Impression: , femoral vein is patent demonstrated normal compressibility there is echogenic noncompressible thrombus in the femoral vein the popliteal vein in the posterior tibial and peroneal veins Independent Historian Clinical information obtained from an independent historian. History obtained from or confirmed by: Other (Family) Tests considered The following testing was considered but not selected: Would consider CTA had patient had any respiratory symptoms Prescription Management I considered prescription management with: Other (Anticoagulation ) Chronic Conditions Patient?s care impacted by: Diabetes and Hypertension Social Determinants Patient?s care significantly limited by Social Determinants of Health including: Other Social Determinant of Health Discharge Plan Discharge Clinical Impression: Deep vein thrombosis of left lower limb Patient Disposition: Home, Self-Care Instructions: Venous Thromboembolism (ED) Additional Instructions: You were given your 1st dose of anticoagulation while here we will take this medication twice daily from here on out for the 1st week you were going to do 10 mg twice daily following that it will be 5 mg twice daily for a minimum of at least 3 months you will need to follow up outpatient with your primary care provider to continue the dose you have been given a script for the 1st 30 days and given your 1st dose here. If for any reason he developing shortness of breath chest discomfort or worsening swelling or pain in her left lower extremity P seek immediate medical attention. Prescriptions: New apixaban 5 mg tablet 10 mg PO BID 7 Days Qty: 28 0RF Rx Instructions: Dispense 5 mg tablets: First dose given in ED. Take 10 mg BID for 6.5 days, followed by 5 mg daily BID x 23 days. Total quantity #72 No Action nitrofurantoin monohyd/m-cryst [Macrobid] 100 mg capsule 100 mg PO BID Qty: 10 0RF Rx Instructions: must administer with a meal/food polyethylene glycol 3350 [Miralax] 17 gram/dose powder 17 g PO DAILY Qty: 238 0RF bisacodyl [Dulcolax (bisacodyl)] 10 mg suppository 10 mg FL DAILY PRN (Reason: constipation) Qty: 12 0RF insulin asp prt-insulin aspart [Novolog Mix 70-30FlexPen U-100] 100 unit/mL (70-30) insulin pen subcut quetiapine 100 mg tablet PO trazodone 50 mg tablet 50 mg PO BEDTIME metformin 500 mg tablet 500 mg PO BID quetiapine 25 mg tablet 25 mg PO BEDTIME (DME) pen needle, diabetic [Pentips Pen Needle] 32 gauge x 5/32 needle See Rx Instructions .ROUTE .MEDSUPPLY Qty: 1200 Rx Instructions: As directed (DME) FreeStyle Lite Strips Strip See Rx Instructions .ROUTE .MEDSUPPLY Qty: 10 Rx Instructions: As directed rosuvastatin 20 mg tablet 20 mg PO BEDTIME lisinopril 5 mg tablet 5 mg PO DAILY aspirin 81 mg tablet,delayed release (DR/EC) 81 mg PO DAILY (DME) lancets [Easy Touch Twist Lancets] 33 gauge misc See Rx Instructions .ROUTE .MEDSUPPLY Qty: 100 Rx Instructions: As directed cholecalciferol (vitamin D3) [Vitamin D3] 50 mcg (2,000 unit) capsule 50 mcg PO DAILY Referrals: [facility] [Provider Group, Vascular Surgery] Referral Note: VTE left lower extremity Interventions: ED Discharge Assessment Last Done: 11/15/24 21:05 Discharge Date/Time: 11/15/24 21:08 Print Language: Finnish
[2024-11-15 16:03] LABS: MANUAL DIFF FLAG NO
[2024-11-15 16:11] LABS: INTERNATIONAL NORM RATIO 1.1 (0.9-1.1); Prothrombin Time 12.4 SEC (10.9-12.4)
[2024-11-15 16:12] LABS: Hematocrit 32.9 % (37.0-47.0); Hemoglobin 10.3 g/dl (12.0-16.0); Imm Gran Abs Auto 0.02 X10*3/uL (0.00-0.03); Imm Gran Pct Auto 0.3 % (0.0-0.4); Lymphocytes Absolute Auto 1.3 X10*3/uL (1.2-4.9); Mean Corpuscular HGB Conc 31.3 g/dl (31.0-35.0); Mean Corpuscular Hemoglobin 25.8 pg (27.0-33.0); Mean Corpuscular Volume 82.5 fL (80.0-98.0); NRBC Abs Auto 0.000 X10*3/uL (0.0-0.012); NRBC Pct Auto 0.0 /100WBC (0.0-0.2); Platelet Count 267 X10*3/uL (160-400); Red Blood Count 3.99 X10*6/uL (4.20-5.50); White Blood Count 7.4 X10*3/uL (4.8-10.8)
[2024-11-15 16:13] LABS: Partial Thromboplastin Time 31.1 SEC (26.0-36.8)
[2024-11-15 16:23] LABS: Alanine Aminotransferase 11 U/L (0-31); Albumin Level 3.7 g/dL (3.5-5.0); Alkaline Phosphatase 104 U/L (39-117); Anion Gap 10 (12-20); Aspartate Amino Transferase 26 U/L (5-31); Blood Urea Nitrogen 13 mg/dL (9-16); Calcium 8.8 mg/dL (8.4-10.2); Carbon Dioxide 30 mmol/L (22-29); Chloride 105 mmol/L (96-108); Creatinine Clr Calc Pharmacy 51.4; Estimated Glomerular Filt Rate > 60; Potassium 3.9 mmol/L (3.3-5.1); Sodium 141 mmol/L (135-145); Total Protein 6.5 g/dL (6.5-8.0)
[2024-11-15 18:04] VITALS: BP 131/107; PULSE 73; RESP 16; O2SAT 99
--- NOTE | 2024-11-15 18:17 | PC.NURSE ---
Addendum entered by Whit Temple RN 11/15/24 18:17: Patient presents with left LE swelling and found to have a + DVT. Patient alert, cooperative with a history of dementia. No tachycardia noted. Lungs clear bilat. Respirations even and non-labored. Abdomen soft, flat, non-tender with positive bowel sounds. Positive pedal pulses with significant left LE swelling. Original Note: Medical History Hx of backache History of depressive symptoms Hx of gastroesophageal reflux (GERD) Hx of urinary tract infection Hx of delirium History of dementia Hx of diabetes mellitus Hx of essential hypertension
[2024-11-15 19:33] VITALS: BP 116/62; PULSE 68; RESP 18; TEMP 36.8; O2SAT 99
[2024-11-15 21:05] VITALS: BP 121/50; PULSE 66; RESP 18; TEMP 36.8; O2SAT 99
== END 2024-11-15 21:08 | disposition home or self-care (01) ==
PROVIDERS: Physician Assistant Medical; Emergency Provider Emergency Medicine; PCP General Practice
DX: I82.402 Acute embolism and thrombosis of unspecified deep veins of left lower extremity (principal); I10 Essential (primary) hypertension; F03.90 Unspecified dementia, unspecified severity, without behavioral disturbance, psychotic disturbance, mood disturbance, and anxiety; E11.9 Type 2 diabetes mellitus without complications; Z79.4 Long term (current) use of insulin; Z79.899 Other long term (current) drug therapy
CPT/HCPCS: 36415; 80053; 85025; 85610; 85730; 99283; 99284

== ENCOUNTER 2024-12-08 15:34 | Outpatient (REF) | payer OTHER, SELFPAY ==
--- NOTE | ~2024-12-08 | US_ITS ---
EXAMINATION: US TRIPLEX LOWER EXTREMITY, LEFT CLINICAL INFORMATION: Left lower extremity pain with history of DVT. Patient is anticoagulated on Eliquis. COMPARISON: None available. TECHNIQUE: Color-flow triplex imaging with spectral analysis and compression Doppler were performed on the left lower extremity. FINDINGS: There is positive deep venous thrombosis present. There is occlusive thrombus in the left femoral vein distally. There is nonocclusive thrombus in the popliteal vein. There is thrombus within the posterior peroneal vein. There is no Harden's cyst. US/US venous duplex LE LT IMPRESSION: Positive DVT of the left lower extremity involving the distal left femoral vein, posterior peroneal vein, and nonocclusive thrombus present in the left popliteal vein. This critical result was relayed to with Hue Maxwell [facility] provider via secure text at 4:37 PM, 12/08/2024. Electronically signed by: Jose E Galvez MD 12/08/2024 04:39 PM EDT
--- OUTSIDE RECORDS SUMMARY | 2024-12-08 15:37 | XMS_ITS | Encounter Summary ---
Author Organization [employer] Address [address] [facility] [address] [place] [address] Care Team Providers Care Welding Equipment Repairer Name Role Phone Hue Maxwell MD Primary Care Provider [phone] Encounter Details Date Type Department Care Team (Late st Contact Info) Description 05/20/2022 Orders Only [facility] [address] [place] [address] Isabelle Jenkins LPN Social History Tobacco Use [...] Description 01/23/2025 2:00 PM EDT Office Visit [facility] MEDICINE [address] [place] [address] Hue Maxwell MD [address] [place] [address] documented as of this encounter Visit Diagnoses Not on filedocumented in this encounter Care Teams Welding Equipment Repairer Relationship Specialty Start Date End Date Hue Maxwell MD [address] [place] [id number] PCP - General Family Medicine 02/27/20 documented as of this encounter
== END 2024-12-08 15:35 | disposition home or self-care (01) ==
LOC: HO.US 15:34
PROVIDERS: PCP General Practice; Visit Provider General Practice
DX: I82.412 Acute embolism and thrombosis of left femoral vein (principal)
CPT/HCPCS: 93971

== ENCOUNTER → 2024-12-08 15:38 | Outpatient (BNV) | payer OTHER, SELFPAY | PROVIDERS: PCP General Practice; Visit Provider Radiology Diagnostic Radiology | DX: I82.492 Acute embolism and thrombosis of other specified deep vein of left lower extremity (principal) | CPT/HCPCS: 93971 ==